=== PATIENT | male | born 1950 | race Caucasian/White ===

== ENCOUNTER 2021-09-19 11:43 | Emergency (ER) | payer OTHER ==
[2021-09-19 11:56] VITALS: BP 121/78; PULSE 67; TEMP 98; BMI 32.2
== END 2021-09-19 15:47 | disposition home or self-care (01) ==
LOC: JER 11:43
DX: H02.402 Unspecified ptosis of left eyelid (principal); H49.21 Sixth [abducent] nerve palsy, right eye
CPT/HCPCS: 70551-TC; 99284-25